=== PATIENT | male | born 1960 | race Caucasian/White ===

== ENCOUNTER 2022-12-27 09:29 | Day surgery (SDC) | payer BC ==
[2022-12-27] VITALS (12 sets, daily range): BP systolic 85–115; BP diastolic 52–66
[~2022-12-27] VITALS: Ht 175.3 cm; Wt 81.4 kg
[2022-12-27] MEDS ORDERED: glucagon, human recombinant 1mg kit SUBCUT PRN (09:50)
[2022-12-27] MEDS ORDERED: nitroGLYCERIN 0.4mg SUBLingual tab SL PRN (09:50)
[2022-12-27] MEDS ORDERED: DEXTROSE 15 GM of carb/4 tabs (each vial/BOTTLE has 4 tablets) PO PRN ×2 (09:50)
[2022-12-27] MEDS ORDERED: insulin Lispro (HumaLOG) vial - multi-dose SQ SCH (09:50)
[2022-12-27] MEDS ORDERED: dextrose 50%-water 50ml dispensing syringe IV PRN ×2 (09:50)
[2022-12-27] MEDS ORDERED: LORazepam 0.5 MG tablet PO PRN (09:50)
[2022-12-27] MEDS ORDERED: diphenhydrAMINE 25mg capsule PO PRN (09:50)
[2022-12-27] MEDS ORDERED: METH2.5T55 PO (10:14)
[2022-12-27] MEDS ORDERED: HYDR25TA5 PO (10:14)
[2022-12-27] MEDS ORDERED: GOLI50VI INJ (10:14)
[2022-12-27] MEDS ORDERED: METF-438 PO (10:14)
[2022-12-27] MEDS ORDERED: ATOR20TA66 PO (10:14)
[2022-12-27] MEDS ORDERED: ERGO400C PO (10:14)
[2022-12-27] MEDS ORDERED: LISI40TA13 PO (10:14)
[2022-12-27] MEDS ORDERED: FENO145T25 PO (10:14)
[2022-12-27] MEDS ORDERED: CITA40TA17 PO (10:14)
[2022-12-27] MEDS ORDERED: INSU300I SQ (10:14)
[2022-12-27] MEDS ORDERED: FOLI1TAB27 PO (10:14)
[2022-12-27] MEDS ORDERED: MULT-1085 PO (10:14)
[2022-12-27] MEDS ORDERED: TRAM50TA2 PO (10:14)
[2022-12-27] MEDS ORDERED: GLIM4TAB7 PO (10:14)
[2022-12-27] MEDS ORDERED: ASCO100T12 PO (10:14)
[2022-12-27] MEDS ORDERED: AMLO5TAB16 PO (10:14)
[2022-12-27] MEDS ORDERED: GABA600T13 PO (10:14)
[2022-12-27] MEDS: normal saline 1,000 ML IV SCH ×2 (11:28→15:47)
[2022-12-27] MEDS ORDERED: iohexol 350MG/ML 100ml bottle IV ONE (12:57)
[2022-12-27] MEDS ORDERED: fentaNYL/PF 50MCG/1 ML 2ML syringe ONE (12:57)
[2022-12-27] MEDS ORDERED: midazolam 1 mg/ML 2ml injection ONE (12:57)
[2022-12-27] MEDS ORDERED: LIDOcaine 1% 30ml preserv. free vial ONE (12:57)
[2022-12-27] MEDS ORDERED: iohexol 350 MG/ML 50ML vial IV ONE ×2 (12:57→13:55)
--- NOTE | 2022-12-27 14:57 | NUR ---
Patient glucose 42 upon arrival to unit. Repeated FSBG and result was 39. Charge Nurse notified. Pt already on glycemic protocol so not notified. Treated patient with D50 50mls X 1 IV. Repeat FSBG at 1457 shows 173. Will continue to monitor for s/s hypoglycemia. Will recheck as ordered around 1700 before dinner.
[2022-12-27] MEDS ORDERED: insulin glargine (Lantus) pen - multi-dose SQ SCH (21:00)
== END 2022-12-27 18:50 | disposition home or self-care (01) ==
LOC: SSTAY O 09:29
PROVIDERS: ATTEND Internal Medicine Cardiovascular Disease
DX: R94.39 Abnormal result of other cardiovascular function study (principal); I25.10 Atherosclerotic heart disease of native coronary artery without angina pectoris; M06.9 Rheumatoid arthritis, unspecified; E78.5 Hyperlipidemia, unspecified; G89.4 Chronic pain syndrome; E11.40 Type 2 diabetes mellitus with diabetic neuropathy, unspecified; M19.90 Unspecified osteoarthritis, unspecified site; I10 Essential (primary) hypertension; F17.210 Nicotine dependence, cigarettes, uncomplicated; Z79.899 Other long term (current) drug therapy
CPT/HCPCS: 82948; 93005; 93458; 93567; 99152; 99153; C1760; C1769; J1644; J1815; J2250; J3010; J3490; J7030; Q0163; Q9967

== ENCOUNTER 2023-05-17 08:00 | Outpatient (CLI) | payer BC ==
[~2023-05-17] VITALS: Ht 177.8 cm; Wt 78.5 kg
[~2023-05-17 08:00] MED LIST: AMLO5TAB16 PO; ASCO100T12 PO; ATOR20TA66 PO; CITA40TA17 PO; ERGO400C PO; FENO145T25 PO; FOLI1TAB27 PO; GABA600T13 PO; GLIM4TAB7 PO; GOLI50VI INJ; HYDR25TA5 PO; INSU300I SQ; LISI40TA13 PO; METF-438 PO; METH2.5T55 PO; MULT-1085 PO; TRAM50TA2 PO
[2023-05-17 14:01] LABS: BASOPHILS % (AUTO) 0.6 % (0-1); EOSINOPHILS # (AUTO) 0.3 X10'3 (0-0.9); EOSINOPHILS % (AUTO) 3.7 % (0-6); LYMPHOCYTES % (AUTO) 27.9 % (21-51); MEAN CORPUSCULAR HEMOGLOBIN 30.8 PG (27.0-31.0); MEAN CORPUSCULAR HGB CONC 33.6 g/dL (33.0-36.5); MEAN CORPUSCULAR VOLUME 91.6 FL (78-98); MEAN PLATELET VOLUME 8.3 FL (7.4-10.4); MONOCYTES # (AUTO) 0.6 X10'3 (0-0.9); MONOCYTES % (AUTO) 8.1 % (2-12); NEUTROPHILS # (AUTO) 4.3 X10'3 (1.8-7.7); NEUTROPHILS % (AUTO) 59.7 % (42-75); PRE OP HEMATOCRIT 38.3 % (42.0-52.0); PRE OP HEMOGLOBIN 12.9 g/dL (14.0-17.9); PRE OP PLATELET COUNT 276 X10'3 (140-440); RED BLOOD COUNT 4.18 X10'6 (4.70-6.10); RED CELL DISTRIBUTION WIDTH 15.2 % (11.5-14.5)
[2023-05-17 14:28] LABS: ALBUMIN/GLOBULIN RATIO 1.5 (1.1-1.5); ALKALINE PHOSPHATASE 57 IU/L (46-116); BLOOD UREA NITROGEN 17 MG/DL (7-18); BUN/CREATININE RATIO 15.7 (10.0-20.0); CALCIUM 9.7 MG/DL (8.5-10.1); CHLORIDE 97 MMOL/L (99-107); CREATININE 1.08 MG/DL (0.60-1.10); PRE OP ALT 77 U/L (30-65); PRE OP ANION GAP 12 (8-16); PRE OP AST 40 U/L (10-37); PRE OP BILIRUB, TOTAL 0.4 MG/DL (0.0-1.0); PRE OP GLUCOSE 185 MG/DL (70-104); PRE OP POTASSIUM 3.8 MMOL/L (3.4-5.1); PRE OP SODIUM 134 MMOL/L (135-145); TOTAL CARBON DIOXIDE 25.4 MMOL/L (24-32); TOTAL PROTEIN 6.7 G/DL (6.4-8.2); eGFR 69 ML/MIN
[2023-05-17] MEDS ORDERED: ASCO-196 (15:19)
[2023-05-22] MEDS ORDERED: ringers solution, lacted 1,000 ML IV SCH (05:00)
[2023-05-22] MEDS ORDERED: vancomycin 1,500 MG in NS 300ml IV soln IV ONE (05:30)
[2023-05-22] MEDS ORDERED: tranexamic acid 650mg tablet PO ONE (05:30)
[2023-05-22] MEDS ORDERED: famotidine 20mg tablet PO ONE (05:30)
[2023-05-22] MEDS ORDERED: cefazolin 2gm/D5W 100mL 100 ML IV ONE (05:30)
== END 2023-05-17 23:00 | disposition home or self-care (01) ==
LOC: LAB 08:00 → PAS 05-22 07:33 → EDSTATUS 05-22 10:30
PROVIDERS: ATTEND Orthopaedic Surgery
DX: Z01.818 Encounter for other preprocedural examination (principal); M17.11 Unilateral primary osteoarthritis, right knee
CPT/HCPCS: 36415; 80053; 85025; 87081; J0690; J3370; J7120